=== PATIENT | male | born 1965 | race Caucasian/White ===

== ENCOUNTER 2020-05-25 14:30 | Emergency (ER) | payer MEDICAID, SELFPAY ==
[2020-05-25 14:52] VITALS: BP 112/75; PULSE 98; RESP 12; TEMP 38.1; O2SAT 95; BMI 25.5
--- NOTE | 2020-05-25 15:11 | XRR_ITS ---
PROCEDURE INFORMATION: Exam: XR Left Femur Exam date and time: 05/25/2020 4:21 PM Age: 55 years old Clinical indication: Injury or trauma; Fall; Initial encounter; Blunt trauma; Thigh or upper leg; Left; Additional info: Injury; PT was told leg was fractured TECHNIQUE: Imaging protocol: XR Left femur. Views: 2 views. COMPARISON: No relevant prior studies available. FINDINGS: Bones/joints: Bones appear somewhat demineralized. Acute mildly comminuted and mildly impacted fracture distal femoral metaphysis. Normal alignment about the fracture site. Soft tissues: Unremarkable. XR/XR femur LT min 2V* [id number] IMPRESSION: Bones appear somewhat demineralized. Acute mildly comminuted and mildly impacted fracture distal femoral metaphysis. Normal alignment about the fracture site.
[2020-05-25 15:52] VITALS: BP 115/75; PULSE 105; RESP 18; O2SAT 97
--- NOTE | 2020-05-25 15:53 | PC.NURSE ---
Patient sitting up in wheelchair.
[2020-05-25 15:57] VITALS: PULSE 105
[2020-05-25 16:27] VITALS: BP 126/77; PULSE 101; RESP 16; O2SAT 98
--- NOTE | 2020-05-25 16:32 | ED_ITS ---
HPI - Extremity Problem General: Chief complaint: Extremity Injury, Lower Stated complaint: right leg injury Time Seen by Provider: 05/25/20 15:43 History of Present Illness: HPI Narrative: She reports is a T10 paraplegic. Several days ago he and his grandson were playing together in his electric wheelchair and the patient accidentally fell out of the chair. Patient was contacted today after x-rays and total bili is a distal femur fracture and told come to the emergency department. Patient has absolutely no feeling of the lower extremities. MD Complaint: extremity swelling Onset (ago): day(s) Location: left, lower extremity and knee Review of Systems General: Reports: 10 or more systems reviewed and unremarkable except in HPI and below Physical Exam Const: COMMON NORMALS: no acute distress, healthy appearing and well nourished GENERAL APPEARANCE: cooperative and well developed HENMT: COMMON NORMALS: normocephalic and atraumatic HEAD & SCALP: normal to inspection, normocephalic and atraumatic Eye: GENERAL EYE: appearance normal, both eyes and all related structures Neck/C-Spine: COMMON NORMALS: full ROM, no lymphadenopathy and no meningeal signs GENERAL: Yes normal visual inspection CERVICAL SPINE: Yes cervical ROM normal and Yes normal cervical lordosis Chest: COMMONS NORMALS: normal inspection of the chest and normal palpation of entire chest wall Resp: COMMON NORMALS: normal respiratory effort, clear to auscultation bilaterally and percussion normal AUSCULTATION: clear to auscultation bilaterally PERCUSSION: percussion normal Cardio: COMMON NORMALS: regular rate, regular rhythm, S1 normal heart sound present and S2 normal heart sound present JUGULAR VENOUS DISTENTION: no JVD PALPATION: normal PMI RATE: regular rate RHYTHM: regular rhythm HEART SOUNDS: S1 normal heart sound present and S2 normal heart sound present GI: COMMON NORMALS: Soft to palpation and No hepatosplenomegaly present INSPECTION: Yes normal to inspection PALPATION: Yes Soft to palpation and Yes No hepatosplenomegaly present PERCUSSION: normal to percussion : COMMON NORMALS: Yes no CVA tenderness BLADDER/KIDNEY EXAM: Yes no CVA tenderness Back/Pelvis: COMMON NORMALS: no CVA tenderness, thoracic and lumbar spine normal to inspection and thoraco-lumbar ROM normal Extremity: NARRATIVE EXTREMITY EXAM: Very mild swelling to the left lower extremity. There is no bruising or discoloration. Neuro: MENINGEAL SIGNS: Yes no meningeal signs Skin: COMMON NORMALS: no rashes or lesions noted, no wounds and turgor normal GENERAL SKIN EXAM: no rashes or lesions noted, elasticity normal and turgor normal LESIONS: no lesions RASHES: no rashes TRAUMA: no lacerations or abrasions HAIR: normal NAILS: normal Course Vital Signs: Vital signs: Vital Signs Temperature 100.5 F H 05/25/20 14:52 Pulse Rate 101 H 05/25/20 16:27 Respiratory Rate 16 05/25/20 16:27 Blood Pressure 126/77 05/25/20 16:27 Pulse Oximetry 98 05/25/20 16:27 MDM - Extremity (Nontraumatic) Imaging Data^: Xray Ortho: My impression: Comminuted but minimally displaced and very well aligned distal femur fracture Discharge Plan Discharge Patient Disposition: Home, Self-Care Clinical Impression: Fracture of femur Qualifiers: Encounter type: initial encounter Femur location: distal, unspecified portion Fracture type: closed Fracture morphology: unspecified fracture morphology Laterality: left Qualified Code(s): S72.402A - Unspecified fracture of lower end of left femur, initial encounter for closed fracture Condition: Stable Referrals: Brayan Haro [Primary Care Provider] - Coding Level of Care Code ED Home Office Representative for g Fwd Exam Comprehensive
[2020-05-25 17:09] VITALS: BP 129/79; PULSE 103; RESP 14; O2SAT 96
[2020-05-25 17:43] VITALS: BP 124/74; PULSE 102; RESP 14; O2SAT 96
== END 2020-05-25 17:44 | disposition home or self-care (01) ==
PROVIDERS: Emergency Provider Family Medicine; PCP Family Medicine
DX: S72.402A Unspecified fracture of lower end of left femur, initial encounter for closed fracture (principal); V00.811A Fall from moving wheelchair (powered), initial encounter
CPT/HCPCS: 12345; 29515; 73552; 99282; 99283

== ENCOUNTER 2020-08-01 13:33 | Outpatient (CLI) | payer MEDICAID, SELFPAY ==
--- NOTE | 2020-08-01 13:30 | XRR_ITS ---
PROCEDURE INFORMATION: Exam: XR Abdomen, 1 View Exam date and time: 08/01/2020 2:00 PM Age: 55 years old Clinical indication: Condition or disease; Kidney or ureter condition; Calculus (stone) in kidney; Additional info: Kidney stone TECHNIQUE: Imaging protocol: XR of the abdomen. Views: Frontal supine view of the abdomen. 1 View. COMPARISON: CR XR KUB [id number] 07/27/2019 2:08 PM FINDINGS: Gastrointestinal and tracts: Both kidneys obscured by overlying stool and bowel gas. Suspect bilateral staghorn calculi measuring approximately 3.5 cm on the right and 3.8 cm on the left. Vasculature: Bilateral pelvic floor region phleboliths. Bones/joints: Prior lower lumbar spine bony fusion versus degenerative bony overgrowth/osteophytes. XR/XR KUB [id number] IMPRESSION: Suspect bilateral staghorn calculi.
== END 2020-08-01 13:34 | disposition home or self-care (01) ==
LOC: RAD 13:35
PROVIDERS: PCP Family Medicine; Visit Provider Urology
DX: N20.0 Calculus of kidney (principal)
CPT/HCPCS: 74018

== ENCOUNTER 2020-08-09 11:55 | Outpatient (CLI) | payer MEDICAID, SELFPAY ==
--- NOTE | 2020-08-09 14:00 | CT_ITS ---
WS: [id number] CT ABDOMEN AND PELVIS NONCONTRAST HISTORY: NEPHROLITHIASIS TECHNIQUE: Imaging performed through the abdomen and pelvis. Coronal and sagittal reformats are submi tted. All CT scans at [facility] use at least one of these dose optimization techniques: automated exposure control; mA and/or kV adjustment per patient size (includes targeted exams where d ose is matched to clinical indication); or iterative reconstruction. DLP: 1326.31 mGy.cm COMPARISON: 05/18/2018 and 08/01/2020 Lower thorax: Chronic emphysematous changes with linear areas of scarring at the lung bases. Small hi atal hernia. Liver: Normal size liver. No mass or bile duct dilatation. Gallbladder: Prior cholecystectomy. Pancreas: Atrophied pancreas. No mass. Spleen: Status post splenectomy. Adrenal glands: Normal. No mass. Right kidney: Normal size kidney. Large central renal pelvis staghorn calculus extends towards the ca lyces. Calculus measures 2.0 x 2.8 x 2.3 cm in length. No hydronephrosis or obstruction at this time. Normal caliber RIGHT ureter. Left kidney: Normal size kidney. There is a central staghorn calculus measuring 2.0 x 1.5 x 1.7 cm. T here is slight dilatation of the LEFT renal pelvis but no evidence for an infection or inflammation. The LEFT renal pelvis is mildly obstructed. Normal size ureter. Aorta: Mild atherosclerosis abdominal aorta with no aneurysm. No free fluid, intraperitoneal air or significant lymphadenopathy. There are small retroperitoneal ly mph nodes. Shotty lymph nodes. Similar in appearance to the prior study may be related to the prior o steomyelitis. GI tract: Extensive fecal retention and constipation. No acute inflammatory changes or obstruction. Abdominal wall: Negative. No hernia. Pelvis: Very mild thickening of the urinary bladder wall. Similar to the prior study. No free fluid o r adenopathy. Osseous structures: Significant destructive process involving the L4-5 vertebral body with displaceme nt. Increased soft tissue surrounding the vertebral body. This is consistent with a known history of prior osteomyelitis. For further details refer to the MRI lumbar spine from 11/05/2019. No apparent i nterval change. CT/CT kidney stone [id number] IMPRESSION: 1. Bilateral staghorn calculi. 2. RIGHT renal staghorn calculus measures 2.0 x 2.8 x 2.3 cm with no obstructi on. 3. LEFT renal staghorn calculus measures 2.0 x 1.5 x 1.7 cm with mild dilatati on of the renal pelvis. 4. Prior splenectomy and cholecystectomy. 5. Significant destructive process at the L4-5 level from prior osteomyelitis. Similar in appearance to the prior MRI of 11/05/2019.
== END 2020-08-09 11:56 | disposition home or self-care (01) ==
LOC: CT 11:57
PROVIDERS: PCP Family Medicine; Visit Provider Nurse Practitioner Family
DX: N20.0 Calculus of kidney (principal)
CPT/HCPCS: 74176

== ENCOUNTER 2020-12-27 09:39 | Outpatient (CLI) | payer MEDICAID, SELFPAY ==
--- NOTE | 2020-12-27 09:30 | XR_ITS ---
WS: [id number] KUB, AP view, KUB, 08/01/2020. 12/27/2020 Clinical Data: NEPHROLITHIASIS Comparison: KUB, 08/01/2020. Findings: Colon gas obscures detail over both kidneys. The staghorn calculi noted on the prior examination may be obscured by the colon gas. The patient has had a bony fusion of the L4 and L5 levels unchanged. There is a posterior fusion of t he lower thoracic vertebral bodies unchanged. There are clips in the right upper quadrant from a chol ecystectomy. There are phleboliths in the true pelvis. XR/XR KUB [id number] Impression: Bowel gas obscures detail over both kidneys and the bilateral staghorn calculi may either be absent or obscured.
== END 2020-12-27 09:40 | disposition home or self-care (01) ==
LOC: RAD 09:43
PROVIDERS: PCP Family Medicine; Visit Provider Urology
DX: N20.0 Calculus of kidney (principal)
CPT/HCPCS: 74018

== ENCOUNTER 2021-02-09 14:08 | Emergency (ER) | payer MEDICAID, SELFPAY ==
[2021-02-09 15:21] VITALS: BP 113/70; PULSE 95; RESP 18; TEMP 37.1; O2SAT 98; BMI 28.7
--- NOTE | 2021-02-09 17:10 | USR_ITS ---
PROCEDURE INFORMATION: Exam: US Scrotum and Artery or Vein of the Abdominal and/or Reproductive Organs, Limited Scrotum Exam date and time: 02/09/2021 5:54 PM Age: 55 years old Clinical indication: Edema and inflammation; Scrotum; Additional info: Swelling, redness TECHNIQUE: Imaging protocol: Real-time ultrasound of the scrotum. Real-time duplex ultrasound scan of the arterial or venous flow with gramajo scale, color Doppler flow and spectral waveform analysis with image documentation. Limited Duplex exam focused of the scrotum. Duplex images required to evaluate for torsion and other vascular conditions. COMPARISON: US Testicular [id number] 11/03/2019 2:30 PM FINDINGS: Right testicle: Normal. No mass. No torsion. Normal Duplex waveforms and color doppler. Left testicle: Normal. No mass. No torsion. Normal Duplex waveforms and color doppler. Epididymides: Right epididymis is abnormally thickened. Heterogeneous echotexture. Increased vascularity on color Doppler analysis. Left epididymis has unremarkable size and sonographic features. Blood flow is present, but grossly unremarkable. Scrotum: Small right-sided varicocele. No significant left-sided varicocele. No significant scrotal fluid. US/US scrotum [id number] IMPRESSION: 1. Enlarged, thickened, hypervascular right epididymis suspicious for acute epididymitis. 2. Negative for testicular torsion.
[2021-02-09 17:32] LABS: Basophils # 0.1 10^3/uL (0.0-0.1); Basophils % 0.7 %; Eosinophils # 0.2 10^3/uL (0.0-0.8); Hematocrit 38.6 % (42.0-52.0); Hemoglobin 12.5 g/dL (11.7-16.6); Lymphocytes # 2.7 10^3/uL (0.8-4.8); Mean Corpuscular HGB Conc 32.4 g/dL (30.0-36.0); Mean Corpuscular Hemoglobin 28.2 pg (28.0-34.0); Mean Corpuscular Volume 87.1 fL (80-94); Mean Platelet Volume 9.7 fL (7.4-10.4); Monocytes # 1.3 10^3/uL (0.2-0.9); Monocytes % 7.6 %; Neutrophils # 12.33 10^3/uL (1.8-7.7); Neutrophils % 74.2 %; Nucleated Red Blood Cells % 0 %; Platelet Count 354 10^3/cmm (130-400); Red Blood Count 4.43 10^6/uL (4.1-5.3); Red Cell Distribution Width 15.7 % (12.1-15.1); White Blood Count 16.6 10^3/uL (4.0-10.0)
[2021-02-09 17:57] LABS: Alanine Aminotransferase 15 U/L (0-41); Albumin Level 3.9 g/dL (3.5-5.2); Alkaline Phosphatase 102 IU/L (40-130); Anion Gap 12.5 (5-19); Aspartate Amino Transferase 15 U/L (0-40); Blood Urea Nitrogen 11 mg/dL (6-20); Calcium 8.9 mg/dL (8.5-10.5); Carbon Dioxide 29 mmol/L (22-29); Chloride 97 mmol/L (98-107); Globulin 3.5 g/dL (1.3-4.6); Glomerular Filtration Rate 140.4 mL/min (90-130); Glucose 102 mg/dL (65-115); Osmolality Calculated 280 mOsm/kg (285-295); Potassium 3.5 mmol/L (3.5-5.1); Sodium 135 mmol/L (136-145); Total Bilirubin 0.6 mg/dL (0.15-1.2); Total Protein 7.4 g/dL (6.6-8.7)
[2021-02-09 18:06] LABS: Creatinine Clr Calc Pharmacy 159.4329
--- NOTE | 2021-02-09 18:16 | ED_ITS ---
HPI - Male Genitourinary General: Chief complaint: Urogenital-Male Stated complaint: GROIN SWOLLEN Source: patient and family () Mode of arrival: wheelchair Limitations: no limitations History of Present Illness: HPI Narrative: 55-year-old male who is a paraplegic and presents to the emergency department with scrotal swelling and perineal swelling. Symptoms started about a week ago. He says he has had some similar happen in the past and he was given some antibiotics to treat it. He denies any fever, denies any penile discharge. He is here for evaluation of this MD Complaint: testicle pain and testicle swelling Onset (ago): week(s) (1) Duration: constant Location: right testicle and left testicle Severity: moderate Quality: aching Relieving factors: none Exacerbating factors: none Associated symptoms: Deny discharge, dysuria, fevers/chills, hematuria, nausea, rash, swelling, urinary incontinence, urinary retention, mass or vomiting Review of Systems General: Reports: 10 or more systems reviewed and unremarkable except in HPI and below Const: Denies: fever(s), chills or body aches Eyes: Denies: change in vision or blurry vision ENMT: Denies: throat pain, enlarged tonsils, odynophagia, hoarseness, mouth pain or swelling of lips/tongue Card: Reports: chest pain; Denies: palpitations, irregular heart rhythm, edema or swelling of feet/ankles Resp: Denies: dyspnea, productive cough or non-productive cough GI: Denies: nausea or vomiting : Reports: scrotal swelling; Denies: dysuria, urinary frequency, urinary urgency, urinary hesitancy, urinary incontinence, hematuria or penile discharge Musc: Denies: neck pain, back pain or extremity swelling Skin/Breast: Denies: rash, pruritus or erythema Neuro: Reports: weakness in extremities (paraplegic); Denies: headache(s) or numbness in extremities Endo: Denies: polyuria, polydipsia or tired all the time PFS ED PFSH: Medical History (Reviewed 02/10/21 @ 00:09 by Christen Olivares MD, [facility] [place]) Allergic rhinitis Discitis of lumbar region DVT (deep venous thrombosis) Fusion of spine, thoracolumbar region ELIZABETH (generalized anxiety disorder) Nephrolithiasis Neurogenic bladder Osteoporosis Post-traumatic paraplegia Pulmonary embolism Rectal abscess s/p I&D 10/2019 Recurrent UTI Thrombocytosis after splenectomy Traumatic brain injury Vertebral osteomyelitis Surgical History (Reviewed 02/10/21 @ 00:09 by Christen Olivares MD, [facility] [place]) History of appendectomy History of cholecystectomy Post-splenectomy 06/2016 S/P lumbar spinal arthrodesis 08/2018 Family History (Reviewed 02/10/21 @ 00:09 by Christen Olivares MD, [facility] [place]) Father CAD (coronary artery disease) Social History (Reviewed 02/10/21 @ 00:09 by Christen Olivares MD, [facility] [place]) Smoking and tobacco status: former smoker Alcohol intake: never Marital status: Single Current occupational status: disabled History of recent travel: No Physical Exam Const: COMMON NORMALS: no acute distress, average body habitus, patient oriented x3, no limitations, healthy appearing, alert and well nourished HENMT: COMMON NORMALS: normocephalic, atraumatic and moist oral mucous membranes HEAD & SCALP: normocephalic and atraumatic Neck/C-Spine: COMMON NORMALS: no JVD Resp: COMMON NORMALS: normal respiratory effort, No retractions, No use of accessory muscles, clear to auscultation bilaterally and percussion normal AUSCULTATION: clear to auscultation bilaterally PERCUSSION: percussion normal Cardio: COMMON NORMALS: no JVD, regular rate, regular rhythm, S1 normal heart sound present, S2 normal heart sound present, No gallops present (Cardio), No clicks present (Cardio), No murmurs present (Cardio), No rub (Cardio) and Peripheral pulses 2+ throughout RATE: regular rate RHYTHM: regular rhythm HEART SOUNDS: S1 normal heart sound present and S2 normal heart sound present PERIPHERAL PULSES: Peripheral pulses 2+ throughout GI: COMMON NORMALS: Normal to inspection, nondistended, normoactive bowel sounds present, Soft to palpation, non-tender, No hepatosplenomegaly present, no masses and no bruits PALPATION: Yes Soft to palpation and Yes No hepatosplenomegaly present : COMMON NORMALS: Yes no CVA tenderness BLADDER/KIDNEY EXAM: Yes no CVA tenderness PENIS: normal penis and circumcised SCROTUM: Yes testes descended bilaterally, No Scrotal tenderness present (he has no sensation from his lower abdomen distally.), Yes erythematous and Yes scrotal swelling TESTES: Yes epididymal induration Back/Pelvis: COMMON NORMALS: no CVA tenderness Extremity: COMMON NORMALS: normal to inspection, full ROM, capillary refill normal, no calf tenderness and no pedal edema Neuro: COMMON NORMALS: patient oriented x3 SENSORIUM/ORIENTATION: Yes alert Course Reevaluation(s): Reevaluation #1: Discussed his lab and ultrasound findings with him. Ultrasound findings consistent with acute epididymitis. We will discharge him home with a prescription for oral levofloxacin. He voiced understanding and is in agreement with the plan Time: 18:16 Vital Signs: Vital signs: Vital Signs Temperature 98.8 F 02/09/21 15:21 Pulse Rate 95 02/09/21 15:21 Respiratory Rate 18 02/09/21 15:21 Blood Pressure 113/70 02/09/21 15:21 Pulse Oximetry 98 02/09/21 15:21 MDM - Male MDM Narrative: Medical decision making narrative: 55-year-old male with clinical features consistent with acute epididymitis. Appears uncomplicated at this time and he is discharged home with a prescription for levofloxacin. He is to follow-up with his primary care provider. Medical Records: Attestation: I reviewed the patient's medical records. Lab Data: Attestation: I reviewed the patient's lab results. Labs: Lab Results 02/09/21 02/09/21 Range/Units 17:25 17:25 WBC 16.6 H (4.0-10.0) 10^3/ uL RBC 4.43 (4.1-5.3) 10^6/u L Hgb 12.5 (11.7-16.6) g/dL Hct 38.6 L (42.0-52.0) % MCV 87.1 (80-94) fL MCH 28.2 (28.0-34.0) pg MCHC 32.4 (30.0-36.0) g/dL RDW 15.7 H (12.1-15.1) % Plt Count 354 (130-400) 10^3/c mm MPV 9.7 (7.4-10.4) fL Neut % (Auto) 74.2 % Lymph % (Auto) 16.0 % Kimble % (Auto) 7.6 % Eos % (Auto) 1.0 % Baso % (Auto) 0.7 % Neut # (Auto) 12.33 H (1.8-7.7) 10^3/u L Lymph # (Auto) 2.7 (0.8-4.8) 10^3/u L Kimble # (Auto) 1.3 H (0.2-0.9) 10^3/u L Eos # (Auto) 0.2 (0.0-0.8) 10^3/u L Baso # (Auto) 0.1 (0.0-0.1) 10^3/u L Nucleated RBC % (a uto) 0 % Nucleated RBCs # 0.0 /100WBC Sodium 135 L (136-145) mmol/L Potassium 3.5 (3.5-5.1) mmol/L Chloride 97 L (98-107) mmol/L Carbon Dioxide 29 (22-29) mmol/L Anion Gap 12.5 (5-19) BUN 11 (6-20) mg/dL Creatinine 0.6 L (0.7-1.2) mg/dL GFR Calculation 140.4 H (90-130) mL/min Glucose 102 (65-115) mg/dL Calculated Osmolal ity 280 L (285-295) mOsm/k g Calcium 8.9 (8.5-10.5) mg/dL Total Bilirubin 0.6 (0.15-1.2) mg/dL AST 15 (0-40) U/L ALT 15 (0-41) U/L Alkaline Phosphata se 102 (40-130) IU/L Total Protein 7.4 (6.6-8.7) g/dL Albumin 3.9 (3.5-5.2) g/dL Globulin 3.5 (1.3-4.6) g/dL Imaging Data: US: Attestation: I personally reviewed and interpreted this imaging study as follows: Radiologist's impression: [address] [address] Ultrasound Report Signed Patient: Blade Salgado #: [id number] : 1965Acct#:[id number] Age/Sex: 55 / MADM Date: 02/09/21 Loc: ERRoom/Bed: Attending Dr: Ordering Provider/Ordering MD: Christen Olivares MD, [facility] [place] Date of Service: 02/09/21 Procedure(s): US scrotum [id number] Accession Number(s): [id number] Report Number: [id number] PROCEDURE INFORMATION: Exam: US Scrotum and Artery or Vein of the Abdominal and/or Reproductive Organs, Limited Scrotum Exam date and time: 02/09/2021 5:54 PM Age: 55 years old Clinical indication: Edema and inflammation; Scrotum; Additional info: Swelling, redness TECHNIQUE: Imaging protocol: Real-time ultrasound of the scrotum. Real-time duplex ultrasound scan of the arterial or venous flow with gramajo scale, color Doppler flow and spectral waveform analysis with image documentation. Limited Duplex exam focused of the scrotum. Duplex images required to evaluate for torsion and other vascular conditions. COMPARISON: US Testicular [id number] 11/03/2019 2:30 PM FINDINGS: Right testicle: Normal. No mass. No torsion. Normal Duplex waveforms and color doppler. Left testicle: Normal. No mass. No torsion. Normal Duplex waveforms and color doppler. Epididymides: Right epididymis is abnormally thickened. Heterogeneous echotexture. Increased vascularity on color Doppler analysis. Left epididymis has unremarkable size and sonographic features. Blood flow is present, but grossly unremarkable. Scrotum: Small right-sided varicocele. No significant left-sided varicocele. No significant scrotal fluid. US/US scrotum [id number] IMPRESSION: 1. Enlarged, thickened, hypervascular right epididymis suspicious for acute epididymitis. 2. Negative for testicular torsion. Dictated By:Joshua Guevara Signed By:Carroll Guevara Date/Time:02/09/211803 DD/ 02 Discharge Plan Discharge Patient Disposition: Home Clinical Impression: Epididymitis Condition: Stable Prescriptions: New levofloxacin 500 mg tablet 500 mg PO DAILY 10 Days RF: 0 Continued ascorbic acid (vitamin C) [Vitamin C] 1,000 mg Tablet 1,000 mg PO BID@ RF: 0 polyethylene glycol 3350 [Miralax] 17 gram Powder In Packet 17 g PO DAILY@1900 RF: 0 tamsulosin 0.4 mg Capsule 0.4 mg PO DAILY@07 RF: 0 baclofen 10 mg Tablet 5 mg PO QID PRN (Reason: Pain) RF: 0 gabapentin 300 mg Capsule 600 mg PO QID RF: 0 ergocalciferol (vitamin D2) 1,250 mcg (50,000 unit) Capsule 1,250 mcg PO Q7D RF: 0 duloxetine 30 mg Capsule,Delayed Release(Dr/Ec) 30 mg PO BID@ RF: 0 oxycodone 10 mg Tablet 10 mg PO Q4H PRN (Reason: Pain) RF: 0 Forteo 20 mcg/dose - 600 mcg/2.4 mL Pen Injector 20 mcg SUBCUT DAILY@2199 RF: 0 Narcan 4 mg/actuation [place],Non-Aerosol 4 mg INTRANASAL Q2M PRN (Reason: OVERDOSE) RF: 0 sumatriptan succinate 50 mg Tablet 50 mg PO Q2H PRN (Reason: Migraine Headache) RF: 0 Pepcid 20 mg Tablet 10 mg PO BID@ RF: 0 buspirone 10 mg Tablet 10 mg PO Q6H PRN (Reason: Anxiety) RF: 0 Colace 100 mg Capsule 100 mg PO BEDTIME@2199 RF: 0 simethicone 80 mg Tablet,Chewable 80 mg PO DAILY PRN (Reason: GAS) RF: 0 Probiotic 3 billion cell Capsule 3,000 mmu cells PO BID@ RF: 0 doxycycline hyclate 100 mg capsule 100 mg PO BID@ RF: 0 methenamine hippurate 1 gram tablet 1 g PO BID@ RF: 0 potassium citrate 10 mEq (1,080 mg) tablet extended release 20 meq PO BID@ RF: 0 Discharge Orders: Discharge ED (Routine); Ordered 02/09/21 Ordered By: Christen Olivares Referrals: Brayan Haro [Primary Care Provider] - 1-3 days Discharge Diet: Usual diet Discharge Activity: Increase activity as tolerated Patient Instructions: Epididymitis (ED) Activity Restrictions/Additional Instructions: Return for any new or worsening symptoms. Follow-up with your primary care provider within 3 days. Take the antibiotic as prescribed. Coding Level of Care Code ED [place] Buyer for Erum Culp
== END 2021-02-09 18:53 | disposition home or self-care (01) ==
PROVIDERS: Emergency Provider Family Medicine; PCP Family Medicine
DX: N45.1 Epididymitis (principal); Z87.891 Personal history of nicotine dependence
CPT/HCPCS: 76870; 80053; 85025; 99282

== ENCOUNTER 2021-02-21 10:32 | Outpatient (CLI) | payer MEDICAID, SELFPAY | END 2021-02-21 10:33 | disposition home or self-care (01) | LOC: WOUND 10:33 | PROVIDERS: PCP Family Medicine; Visit Provider Thoracic Surgery (Cardiothoracic Vascular Surgery) | DX: L98.492 Non-pressure chronic ulcer of skin of other sites with fat layer exposed (principal) | CPT/HCPCS: 11042; G0463 ==

== ENCOUNTER 2021-03-07 11:32 | Outpatient (CLI) | payer MEDICAID, SELFPAY | END 2021-03-07 11:33 | disposition home or self-care (01) | LOC: WOUND 11:32 | PROVIDERS: PCP Family Medicine; Visit Provider Nurse Practitioner Family | DX: L98.492 Non-pressure chronic ulcer of skin of other sites with fat layer exposed (principal) | CPT/HCPCS: 11042 ==

== ENCOUNTER 2021-03-28 10:43 | Outpatient (CLI) | payer MEDICAID, SELFPAY | END 2021-03-28 10:44 | disposition home or self-care (01) | LOC: WOUND 10:44 | PROVIDERS: PCP Family Medicine; Visit Provider Thoracic Surgery (Cardiothoracic Vascular Surgery) | DX: L98.492 Non-pressure chronic ulcer of skin of other sites with fat layer exposed (principal) | CPT/HCPCS: 11042 ==

== ENCOUNTER 2021-04-18 10:03 | Outpatient (CLI) | payer MEDICAID, SELFPAY | END 2021-04-18 10:04 | disposition home or self-care (01) | LOC: WOUND 10:03 | PROVIDERS: PCP Family Medicine; Visit Provider Thoracic Surgery (Cardiothoracic Vascular Surgery) | DX: L02.818 Cutaneous abscess of other sites (principal) | CPT/HCPCS: 99212 ==

== ENCOUNTER → 2021-04-19 11:11 | Outpatient (BNVA) | payer MEDICAID, SELFPAY | PROVIDERS: PCP Family Medicine; Visit Provider Thoracic Surgery (Cardiothoracic Vascular Surgery) | DX: Z01.818 Encounter for other preprocedural examination (principal) | CPT/HCPCS: 87635 ==

== ENCOUNTER 2021-04-25 06:09 | Day surgery (SDC) | payer MEDICAID, SELFPAY ==
[2021-04-24 13:04] VITALS: BMI 26.5
[2021-04-25 06:25] VITALS: BP 138/78; PULSE 74; RESP 16; TEMP 36.9; O2SAT 95
--- NOTE | 2021-04-25 06:35 | W.PM.OPSUD ---
Surgery/Procedure H&P Update DATE OF PROCEDURE: April 25, 2021 DATE H&P PERFORMED: 04/18/21 H&P UPDATE INFORMATION: I have reviewed H&P completed within last 30 days, I have examined patient prior to procedure and No changes to prior documentation PREOP DIAGNOSIS: Scrotal abscess PRIMARY INDICATION FOR PROCEDURE: Open remaining abscess tract to allow for appropriate packing PLANNED PROCEDURE: Operation Date: 04/25/21 07:00 Proposed Procedures p Incision And Drainage buttocks(Not Applicable) - Arya Subramanian MD
[2021-04-25 06:48] LABS: Basophils # 0.1 10^3/uL (0.0-0.1); Basophils % 1.6 %; Eosinophils # 0.6 10^3/uL (0.0-0.8); Eosinophils % 7.5 %; Hematocrit 41.1 % (42.0-52.0); Hemoglobin 13.2 g/dL (11.7-16.6); Lymphocytes # 3.2 10^3/uL (0.8-4.8); Lymphocytes % 42.6 %; Mean Corpuscular HGB Conc 32.1 g/dL (30.0-36.0); Mean Corpuscular Hemoglobin 28.4 pg (28.0-34.0); Mean Corpuscular Volume 88.4 fL (80-94); Mean Platelet Volume 10.3 fL (7.4-10.4); Monocytes # 0.7 10^3/uL (0.2-0.9); Monocytes % 9.1 %; Neutrophils # 2.93 10^3/uL (1.8-7.7); Neutrophils % 39.1 %; Nucleated Red Blood Cells % 0 %; Platelet Count 401 10^3/cmm (130-400); Red Blood Count 4.65 10^6/uL (4.1-5.3); Red Cell Distribution Width 16.2 % (12.1-15.1); White Blood Count 7.5 10^3/uL (4.0-10.0)
[2021-04-25] MEDS: vancomycin 1,000 MG in sodium chloride 0.9% 250 ML 250 MG IV (06:50)
[2021-04-25] MEDS: sodium chloride 0.9% 1,000 ML 30 ML IV (06:50)
[2021-04-25 07:13] LABS: Anion Gap 14.1 (5-19); Blood Urea Nitrogen 13 mg/dL (6-20); Calcium 9.6 mg/dL (8.5-10.5); Carbon Dioxide 28 mmol/L (22-29); Chloride 100 mmol/L (98-107); Glomerular Filtration Rate 224.2 mL/min (90-130); Glucose 100 mg/dL (65-115); Osmolality Calculated 286 mOsm/kg (285-295); Potassium 4.1 mmol/L (3.5-5.1); Sodium 138 mmol/L (136-145)
--- NOTE | 2021-04-25 07:19 | P.ANESASSM_ITS ---
Pre-Anesthetic Assessment Pre-Anesthetic Assessment: Height/Weight: Height 1.78 m Weight 83.915 kg Temp Pulse Resp BP Pulse Ox 98.5 F 74 16 138/78 95 04/25/21 06:25 04/25/21 06:25 04/25/21 06:25 04/25/21 06:25 04/25/21 06:25 Preop Diagnosis: Scrotal abscess Proposed Procedure: Operation Date: 04/25/21 07:00 Proposed Procedures p Incision And Drainage buttocks(Not Applicable) - Arya Subramanian MD Was Beta Bertha taken within 24 hours: N/A Was Clonidine taken within 24 hours: N/A Last intake: Intake Last Liquid Date 04/25/21 Last Liquid Time 00:00 Last Solid Date 04/24/21 Last Solid Time 21:00 Social: Social History: Tobacco and No alcohol Exam: Pre-Anes Outpt Exam: alert, oriented x 3 and regular rate & rhythm Airway: Submandibular: WNL Cervical ROM: WNL MP: 2 Dentition: False Additional comments: Dickson Pulmonary: Pulmonary: COPD Musc/skel: Comments: Chronic pain/opioid Neuropsych: Neuropsych: Anxiety Comments: Paraplegia Anesthetic Plan: ASA status: 3 Anesthesia: General Risk of > 500 ml blood loss (7ml/kg in children): No Meds/Allergies Current Medications: Current Medications Generic Name Dose Route Start Last Admin Trade Name Freq PRN Reason Stop Dose Admin Sodium Chloride 1,000 mls @ 30 ml s/hr 04/25/21 06:15 04/25/21 06:50 Sodium Chloride 0.9% IV 04/26/21 06:14 30 mls/hr .Q24H PATRICIA Administration PFSH Anesthesia PFSH: Medical History Allergic rhinitis Discitis of lumbar region DVT (deep venous thrombosis) Fusion of spine, thoracolumbar region ELIZABETH (generalized anxiety disorder) Nephrolithiasis Neurogenic bladder Osteoporosis Post-traumatic paraplegia Pulmonary embolism Rectal abscess s/p I&D 10/2019 Recurrent UTI Thrombocytosis after splenectomy Traumatic brain injury Vertebral osteomyelitis Surgical History History of appendectomy History of cholecystectomy Post-splenectomy 06/2016 S/P lumbar spinal arthrodesis 08/2018 Family History Father CAD (coronary artery disease) Social History Smoking and tobacco status: former smoker Alcohol intake: never Marital status: Single Current occupational status: disabled History of recent travel: No Data Anesthesia CBC & Chem 7: 04/25/21 06:40 04/25/21 06:40 Other Labs: Laboratory Results - last 48 hr 04/25/21 04/25/21 06:40 06:40 WBC 7.5 RBC 4.65 Hgb 13.2 Hct 41.1 L MCV 88.4 MCH 28.4 MCHC 32.1 RDW 16.2 H Plt Count 401 H MPV 10.3 Neut % (Auto) 39.1 Lymph % (Auto) 42.6 [place] % (Auto) 9.1 Eos % (Auto) 7.5 Baso % (Auto) 1.6 Neut # (Auto) 2.93 Lymph # (Auto) 3.2 [place] # (Auto) 0.7 Eos # (Auto) 0.6 Baso # (Auto) 0.1 Nucleated RBC % (auto) 0 Nucleated RBCs # 0.0 Sodium 138 Potassium 4.1 Chloride 100 Carbon Dioxide 28 Anion Gap 14.1 BUN 13 Glucose 100 Calculated Osmolality 286 Calcium 9.6 Cardiac Studies: No Data to Display
--- NOTE | 2021-04-25 07:37 | P.OP_ITS ---
Operative Report Date of procedure: April 25, 2021 Pre-op Diagnosis: Draining Scrotal abscess tract Post-op diagnosis: same Procedure Done: I&D of scrotal abscess tract Specimens removed/disposition: None Pathology: none sent Surgeon: Arya Subramanian Anesthesia: MAC Complications: None Findings: Abscess tract opened up widely with debridement of the tract floor Condition: stable Disposition: same day Brief History: Mr. Salgado pleasant 55-year-old paraplegic gentleman who is been followed in wound care services and is status post drainage of a large scrotal abscess. This wound is healed well except for a small draining sinus tract in the midline. This does probe and I recommended that this be opened widely under operative conditions to allow for secondary intentional healing. Details the risk of the procedure were carefully discussed. Proper consents were reviewed and signed. Mr. Salgado is anesthetic from the lower abdomen distally. Procedure: Mr. Salgado taken to the operating room theater and carefully positioned in the left lateral decubitus position and secured. He received very light conscious sedation. No local anesthesia was required. His entire perineal area was sterilely prepped and draped. Utilized a small probe to identify the tract and its extent both posteriorly and anteriorly. This was opened up with a #11 and #15 scalpel blade widely. Bleeding points were cauterized as needed. In the lining of the tract was actively excised with a # 15 scalpel blade and with Metzenbaum scissors. We confirmed hemostasis. Wound was irrigated. Final dimensions of the wound measure 2.5 cm in length by 1 cm in width by 1 cm in depth. Wet-to-dry dressing was then applied. He was then carefully returned to the supine position. He tolerated procedure quite well without any discomfort. He is transferred now back to outpatient surgery department. He will receive daily wet-to-dry dressing changes. He will follow- up in wound care services at his next scheduled appointment.
[2021-04-25 07:38] VITALS: BP 127/82; PULSE 88; RESP 18; TEMP 37.2; O2SAT 93
[2021-04-25 07:40] VITALS: BP 130/78; PULSE 81; RESP 18; O2SAT 95
[2021-04-25 07:45] VITALS: BP 122/69; PULSE 74; RESP 18; O2SAT 93
[2021-04-25 07:50] VITALS: BP 116/80; PULSE 70; RESP 17; TEMP 37.2; O2SAT 93
[2021-04-25 08:02] VITALS: BP 125/81; PULSE 67; RESP 16; TEMP 36.6; O2SAT 94
--- NOTE | 2021-04-25 12:51 | ANE.PACU2 ---
Inpatient post-anesthesia follow up: Airway intact: Yes Vital signs: Temperature 98 F Pulse Rate 67 Respiratory Rate 16 Blood Pressure 125/81 Pulse Oximetry 94 Oxygen Delivery Me thod Room Air Oxygen Flow Rate Fraction of Inspir ed Oxygen Hydration adequate: Yes Nausea and vomiting: No Pain level: 1 Mental status: Baseline
== END 2021-04-25 08:35 | disposition home or self-care (01) ==
PROVIDERS: PCP Family Medicine; Visit Provider Thoracic Surgery (Cardiothoracic Vascular Surgery)
PROC: (CPT 55100; principal; 2021-04-25 07:00)
DX: N49.2 Inflammatory disorders of scrotum (principal); J44.9 Chronic obstructive pulmonary disease, unspecified; Z86.718 Personal history of other venous thrombosis and embolism; M81.0 Age-related osteoporosis without current pathological fracture; Z98.1 Arthrodesis status; Z87.891 Personal history of nicotine dependence
CPT/HCPCS: 55100; 36415; 80048; 85025; 96365; J2250; J3010; J3370; J7030; J7050

== ENCOUNTER 2021-05-01 11:53 | Outpatient (CLI) | payer MEDICAID, SELFPAY ==
--- NOTE | 2021-05-01 12:00 | XRR_ITS ---
PROCEDURE INFORMATION: Exam: XR Abdomen Exam date and time: 05/01/2021 12:01 PM Age: 55 years old Clinical indication: Condition or disease; Kidney or ureter condition; Calculus (stone) in kidney; Prior surgery; Surgery type: Spleen, gallbladder; Additional info: N20.0 - calculus of kidney TECHNIQUE: Imaging protocol: XR of the abdomen. Views: Frontal supine view of the abdomen. 1 View. COMPARISON: CR XR KUB [id number] 12/27/2020 10:02 AM FINDINGS: Gastrointestinal tract: Normal. No bowel dilation. Status post cholecystectomy. Organs: Urinary tract: The kidneys are partially obscured by colon contents. A faint density is present in the medial aspect of the right kidney suspicious for staghorn calculus. Bones/joints: Lumbar spine osteopenia and osteoarthritis is seen. Surgical hardware is seen in the lower dorsal spine. XR/XR KUB [id number] IMPRESSION: 1. No acute GI abnormality. 2. Osteoarthritis lumbar spine 3. Surgical hardware dorsal spine. 4. Possible staghorn calculus right kidney
== END 2021-05-01 11:54 | disposition home or self-care (01) ==
PROVIDERS: PCP Family Medicine; Visit Provider Urology
DX: N20.0 Calculus of kidney (principal); M47.816 Spondylosis without myelopathy or radiculopathy, lumbar region
CPT/HCPCS: 74018

== ENCOUNTER 2021-05-02 10:22 | Outpatient (CLI) | payer MEDICAID, SELFPAY | END 2021-05-02 10:23 | disposition home or self-care (01) | LOC: WOUND 10:23 | PROVIDERS: PCP Family Medicine; Visit Provider Thoracic Surgery (Cardiothoracic Vascular Surgery) | DX: L98.492 Non-pressure chronic ulcer of skin of other sites with fat layer exposed (principal) | CPT/HCPCS: 11042 ==

== ENCOUNTER 2021-05-09 10:29 | Outpatient (CLI) | payer MEDICAID, SELFPAY | END 2021-05-09 10:30 | disposition home or self-care (01) | LOC: WOUND 10:29 | PROVIDERS: PCP Family Medicine; Visit Provider Nurse Practitioner Family | DX: L98.412 Non-pressure chronic ulcer of buttock with fat layer exposed (principal) | CPT/HCPCS: 11042 ==

== ENCOUNTER 2021-05-23 09:24 | Outpatient (CLI) | payer MEDICAID, SELFPAY | END 2021-05-23 09:25 | disposition home or self-care (01) | LOC: WOUND 09:25 | PROVIDERS: PCP Family Medicine; Visit Provider Thoracic Surgery (Cardiothoracic Vascular Surgery) | DX: T81.89XA Other complications of procedures, not elsewhere classified, initial encounter (principal); Y83.8 Other surgical procedures as the cause of abnormal reaction of the patient, or of later complication, without mention of misadventure at the time of the procedure | CPT/HCPCS: 11042 ==

== ENCOUNTER 2021-06-20 09:32 | Outpatient (CLI) | payer MEDICAID, SELFPAY | END 2021-06-20 09:33 | disposition home or self-care (01) | LOC: WOUND 09:32 | PROVIDERS: PCP Family Medicine; Visit Provider Nurse Practitioner Family | DX: T81.89XA Other complications of procedures, not elsewhere classified, initial encounter (principal); Y83.8 Other surgical procedures as the cause of abnormal reaction of the patient, or of later complication, without mention of misadventure at the time of the procedure | CPT/HCPCS: 11042 ==

== ENCOUNTER 2021-06-27 10:15 | Outpatient (CLI) | payer MEDICAID, SELFPAY | END 2021-06-27 10:16 | disposition home or self-care (01) | LOC: WOUND 10:16 | PROVIDERS: PCP Family Medicine; Visit Provider Thoracic Surgery (Cardiothoracic Vascular Surgery) | DX: T81.89XA Other complications of procedures, not elsewhere classified, initial encounter (principal); Y83.8 Other surgical procedures as the cause of abnormal reaction of the patient, or of later complication, without mention of misadventure at the time of the procedure; F17.210 Nicotine dependence, cigarettes, uncomplicated; L02.818 Cutaneous abscess of other sites | CPT/HCPCS: G0463 ==

== ENCOUNTER 2021-07-06 11:03 | Outpatient (CLI) | payer MEDICAID, SELFPAY | END 2021-07-06 11:04 | disposition home or self-care (01) | LOC: WOUND 11:03 | PROVIDERS: PCP Family Medicine; Visit Provider Surgery | DX: T81.89XA Other complications of procedures, not elsewhere classified, initial encounter (principal); Y83.8 Other surgical procedures as the cause of abnormal reaction of the patient, or of later complication, without mention of misadventure at the time of the procedure; L02.818 Cutaneous abscess of other sites; F17.210 Nicotine dependence, cigarettes, uncomplicated | CPT/HCPCS: 11042 ==

== ENCOUNTER → 2021-07-11 16:04 | Outpatient (BNVA) | payer MEDICAID, SELFPAY | PROVIDERS: PCP Family Medicine; Visit Provider Surgery | DX: L02.215 Cutaneous abscess of perineum (principal); Z20.822 Contact with and (suspected) exposure to COVID-19 | CPT/HCPCS: 87635 ==

== ENCOUNTER 2021-07-16 09:53 | Day surgery (SDC) | payer MEDICAID, SELFPAY ==
[2021-07-13 15:07] VITALS: BMI 25.8
[2021-07-16] MEDS: acetaminophen 1,000 MG/100 ML PIGGYBACK 400 MG IV (10:20)
[2021-07-16] MEDS: sodium chloride 0.9% 1,000 ML 30 ML IV (10:20)
--- NOTE | 2021-07-16 11:37 | W.PM.OPSUD ---
Surgery/Procedure H&P Update DATE OF PROCEDURE: July 16, 2021 DATE H&P PERFORMED: 07/11/21 H&P UPDATE INFORMATION: I have reviewed H&P completed within last 30 days, I have examined patient prior to procedure and No changes to prior documentation PREOP DIAGNOSIS: Perineal fistula PRIMARY INDICATION FOR PROCEDURE: The same PLANNED PROCEDURE: Operation Date: 07/16/21 11:45 Proposed Procedures p Wound Exploration [id number](Not Applicable) - Roby Dominique MD s Exam Under Anesthesia(Not Applicable) - Roby Dominique MD
--- NOTE | 2021-07-16 11:55 | ANES.PREANE2 ---
Pre-Anesthetic Assessment Pre-Anesthetic Assessment: Height/Weight: Height 1.78 m Weight 81.647 kg Preop Diagnosis: Perineal fistula Proposed Procedure: Operation Date: 07/16/21 11:45 Proposed Procedures p Wound Exploration 77782(Not Applicable) - Roby Dominique MD s Exam Under Anesthesia(Not Applicable) - Roby Dominique MD Was Beta Bertha taken within 24 hours: N/A Was Clonidine taken within 24 hours: N/A Last intake: Intake Last Liquid Date 07/15/21 Last Liquid Time 21:00 Last Solid Date 07/15/21 Last Solid Time 21:00 Social: Social History: Tobacco and No alcohol Exam: Pre-Anes Outpt Exam: alert, oriented x 3 and regular rate & rhythm Airway: Submandibular: WNL Cervical ROM: WNL MP: 2 Dentition: False Additional comments: beatriz Toussaint/vijaya: Comments: Chronic pain/opioid Neuropsych: Neuropsych: Anxiety and Depression Comments: Paraplegia Anesthetic Plan: ASA status: 3 Anesthesia: General Risk of > 500 ml blood loss (7ml/kg in children): No Meds/Allergies Current Medications: Current Medications Generic Name Dose Route Start Last Admin Trade Name Freq PRN Reason Stop Dose Admin Sodium Chloride 1,000 mls @ 30 ml s/hr 07/16/21 10:30 07/16/21 10:20 Sodium Chloride 0.9% IV 07/17/21 10:29 30 mls/hr .Q24H PATRICIA Administration PFSH Anesthesia PFSH: Medical History Allergic rhinitis Discitis of lumbar region DVT (deep venous thrombosis) Fusion of spine, thoracolumbar region ELIZABETH (generalized anxiety disorder) Nephrolithiasis Neurogenic bladder Osteoporosis Post-traumatic paraplegia Pulmonary embolism Rectal abscess s/p I&D 10/2019 Recurrent UTI Thrombocytosis after splenectomy Traumatic brain injury Vertebral osteomyelitis Surgical History History of appendectomy History of cholecystectomy Post-splenectomy 06/2016 S/P lumbar spinal arthrodesis 08/2018 Family History Father CAD (coronary artery disease) Mother , at age 55 Brain aneurysm Social History Alcohol intake: never Marital status: Single Current occupational status: disabled History of recent travel: No Data Anesthesia Cardiac Studies: No Data to Display
[2021-07-16] MEDS: piperacillin-tazobactam 3.375 GM in sodium chloride 0.9% (plus) 50 ML IV (12:11)
--- NOTE | 2021-07-16 12:55 | P.OP_ITS ---
Operative Report Date of procedure: July 16, 2021 Pre-op Diagnosis: Perineal fistula Post-op diagnosis: same Post-op Findings: Right-sided perineal fistula Procedure Done: 1-Examination under anesthesia 2-Exploration of perineal wound and placement of seton Implants: Blue vessel loop Medical Records Tech: Suzy Song Circulating nurse Rosemary Horvath Anesthesia: MAC (Marifer Michaud) Estimated blood loss (mL): 5 Condition: stable Disposition: same day Brief History: Perineal fistula Procedure: Patient was identified in the holding area, was taken to the OR placed first in supine position,IV antibiotics were given with induction time- out was done verifying the patient's name, date of , and procedure, all were in agreement. IV propofol was infused by the anesthesia provider, patient was placed in lithotomy position where all pressure points were padded and patient was secured to the table. Swift catheter was inserted by the circulating nurse revealing clear urine. prep and drape of the perineum was done under the usual sterile technique Perianal examination showed right sided perineal sinuses, digital rectal examination show unremarkable findings. There was no scrotal compartment involvement. A lubricated self-retaining proctoscope was inserted, there was no evidence of fistulae or masses per anal examination Started by introducing a tonsil clamp through the anterior sinus of the right side of the perineum and fistula was identified and the tonsil clamp was able to be delivered through the posterior sinus. The posterior segment of the urethra was safeguarded by having a Swift catheter already placed, and the urine maintained to be cleared through the whole entire procedure. Sharp curettage was done to the fistula tract, followed by passing a vessel loop like seton and was tied down by 2-0 silk suture ABDs were applied followed by surgical pants Patient was repositioned to supine position, counts of instruments,needles and sponges were completed at the end of the procedure Patient was taken to the recovery area in stable condition I was present for the whole entire procedure
[2021-07-16 13:09] VITALS: BP 112/79; PULSE 72; RESP 14; TEMP 36.1; O2SAT 96
[2021-07-16 13:10] VITALS: BP 112/79; PULSE 73; RESP 15; O2SAT 97
[2021-07-16 13:16] VITALS: BP 105/77; PULSE 59; RESP 16; O2SAT 95
[2021-07-16 13:20] VITALS: BP 105/77; PULSE 75; RESP 24; TEMP 36.2; O2SAT 95
[2021-07-16 13:25] VITALS: BP 121/83; PULSE 88; RESP 18; TEMP 36.2; O2SAT 92
[2021-07-16 13:55] VITALS: BP 123/85; PULSE 92; RESP 18; O2SAT 95
--- NOTE | 2021-07-16 15:41 | ANE.PACU2 ---
Inpatient post-anesthesia follow up: Airway intact: Yes Vital signs: Temperature 97.2 F Pulse Rate 92 Respiratory Rate 18 Blood Pressure 123/85 Pulse Oximetry 95 Oxygen Delivery Me thod Room Air Oxygen Flow Rate Fraction of Inspir ed Oxygen Hydration adequate: Yes Nausea and vomiting: No Pain level: 1 Mental status: Baseline
== END 2021-07-16 13:25 | disposition home or self-care (01) ==
PROVIDERS: PCP Family Medicine; Visit Provider Surgery
PROC: (CPT 46940; principal; 2021-07-16 11:40)
PROC: (CPT 46940; 2021-07-16 11:40)
DX: K60.3 Anal fistula (principal); G89.29 Other chronic pain; Z79.891 Long term (current) use of opiate analgesic; F41.9 Anxiety disorder, unspecified; F32.9 Major depressive disorder, single episode, unspecified; G82.20 Paraplegia, unspecified; Z86.718 Personal history of other venous thrombosis and embolism; M81.0 Age-related osteoporosis without current pathological fracture; Z86.711 Personal history of pulmonary embolism; Z82.49 Family history of ischemic heart disease and other diseases of the circulatory system
CPT/HCPCS: 46940; 96365; J2543; J2704; J3010; J3490; J7030

== ENCOUNTER 2021-07-20 15:19 | Outpatient (CLI) | payer MEDICAID, SELFPAY | END 2021-07-20 15:20 | disposition home or self-care (01) | LOC: WOUND 15:20 | PROVIDERS: PCP Family Medicine; Visit Provider Surgery | DX: L98.492 Non-pressure chronic ulcer of skin of other sites with fat layer exposed (principal); F17.210 Nicotine dependence, cigarettes, uncomplicated | CPT/HCPCS: 11042 ==

== ENCOUNTER 2021-07-27 14:56 | Outpatient (CLI) | payer MEDICAID, SELFPAY | END 2021-07-27 14:57 | disposition home or self-care (01) | LOC: WOUND 14:57 | PROVIDERS: PCP Family Medicine; Visit Provider Surgery | DX: T81.89XA Other complications of procedures, not elsewhere classified, initial encounter (principal); Y83.8 Other surgical procedures as the cause of abnormal reaction of the patient, or of later complication, without mention of misadventure at the time of the procedure; F17.210 Nicotine dependence, cigarettes, uncomplicated | CPT/HCPCS: 11042 ==

== ENCOUNTER 2021-08-03 15:02 | Outpatient (CLI) | payer MEDICAID, SELFPAY | END 2021-08-03 15:03 | disposition home or self-care (01) | LOC: WOUND 15:02 | PROVIDERS: PCP Family Medicine; Visit Provider Surgery | DX: T81.89XA Other complications of procedures, not elsewhere classified, initial encounter (principal); Y83.8 Other surgical procedures as the cause of abnormal reaction of the patient, or of later complication, without mention of misadventure at the time of the procedure; F17.210 Nicotine dependence, cigarettes, uncomplicated | CPT/HCPCS: 11042 ==

== ENCOUNTER 2021-08-10 14:31 | Outpatient (CLI) | payer MEDICAID, SELFPAY | END 2021-08-10 14:32 | disposition home or self-care (01) | LOC: WOUND 14:32 | PROVIDERS: PCP Family Medicine; Visit Provider Surgery | DX: T81.89XA Other complications of procedures, not elsewhere classified, initial encounter (principal); Y83.8 Other surgical procedures as the cause of abnormal reaction of the patient, or of later complication, without mention of misadventure at the time of the procedure; F17.210 Nicotine dependence, cigarettes, uncomplicated | CPT/HCPCS: 11042 ==

== ENCOUNTER 2021-08-17 13:00 | Outpatient (CLI) | payer MEDICAID, SELFPAY | END 2021-08-17 13:01 | disposition home or self-care (01) | LOC: WOUND 13:01 | PROVIDERS: PCP Family Medicine; Visit Provider Surgery | DX: T81.89XA Other complications of procedures, not elsewhere classified, initial encounter (principal); Y83.8 Other surgical procedures as the cause of abnormal reaction of the patient, or of later complication, without mention of misadventure at the time of the procedure; F17.210 Nicotine dependence, cigarettes, uncomplicated | CPT/HCPCS: 11042 ==

== ENCOUNTER 2021-08-31 10:39 | Outpatient (CLI) | payer MEDICAID, SELFPAY | END 2021-08-31 10:40 | disposition home or self-care (01) | LOC: WOUND 10:40 | PROVIDERS: PCP Family Medicine; Visit Provider Surgery | DX: T81.89XA Other complications of procedures, not elsewhere classified, initial encounter (principal); Y83.8 Other surgical procedures as the cause of abnormal reaction of the patient, or of later complication, without mention of misadventure at the time of the procedure; F17.210 Nicotine dependence, cigarettes, uncomplicated | CPT/HCPCS: 11042 ==

== ENCOUNTER 2021-09-07 10:37 | Outpatient (CLI) | payer MEDICAID, SELFPAY | END 2021-09-07 10:38 | disposition home or self-care (01) | LOC: WOUND 10:37 | PROVIDERS: PCP Family Medicine; Visit Provider Nurse Practitioner Family | DX: T81.89XA Other complications of procedures, not elsewhere classified, initial encounter (principal); Y83.8 Other surgical procedures as the cause of abnormal reaction of the patient, or of later complication, without mention of misadventure at the time of the procedure; F17.210 Nicotine dependence, cigarettes, uncomplicated | CPT/HCPCS: 11042 ==

== ENCOUNTER 2021-09-19 12:28 | Outpatient (CLI) | payer MEDICAID, SELFPAY ==
--- NOTE | 2021-09-19 12:45 | US_ITS ---
WS: [id number] ULTRASOUND SOFT TISSUES perineum. HISTORY: ABSCESS OF EPIDIDYMIS OR TESTIS COMPARISON: None available. TECHNIQUE: 2-D and color Doppler imaging is submitted. There is a complex thick-walled collection with mild peripheral hyperemia centered in the perineum in the area of previously described abscess. This collection is elongated and extends through a tract t o the superficial soft tissue. Collection extends along tract of greater than 3 cm. The remaining kodak meters are 3.0 x 2.2 x 1.3 cm. The wall and complex material centrally but there is increased vascula rity. US/US soft tissue/extremity [id number] IMPRESSION: Small residual hyperemic phlegmonous collection in the perineum. No central liq uefaction but there is increased vascularity suggesting this is an infectious c ollection.
== END 2021-09-19 12:29 | disposition home or self-care (01) ==
LOC: RAD 12:31
PROVIDERS: PCP Family Medicine; Visit Provider Surgery
DX: N45.4 Abscess of epididymis or testis (principal)
CPT/HCPCS: 76882

== ENCOUNTER 2021-09-21 10:45 | Outpatient (CLI) | payer MEDICAID, SELFPAY | END 2021-09-21 10:46 | disposition home or self-care (01) | LOC: WOUND 10:46 | PROVIDERS: PCP Family Medicine; Visit Provider Surgery | DX: T81.89XA Other complications of procedures, not elsewhere classified, initial encounter (principal); Y83.8 Other surgical procedures as the cause of abnormal reaction of the patient, or of later complication, without mention of misadventure at the time of the procedure; F17.210 Nicotine dependence, cigarettes, uncomplicated | CPT/HCPCS: 11042 ==

== ENCOUNTER 2021-09-28 13:16 | Outpatient (CLI) | payer MEDICAID, SELFPAY | END 2021-09-28 13:17 | disposition home or self-care (01) | LOC: WOUND 13:17 | PROVIDERS: PCP Family Medicine; Visit Provider Surgery | DX: T81.89XA Other complications of procedures, not elsewhere classified, initial encounter (principal); Y83.8 Other surgical procedures as the cause of abnormal reaction of the patient, or of later complication, without mention of misadventure at the time of the procedure; F17.210 Nicotine dependence, cigarettes, uncomplicated | CPT/HCPCS: 11042 ==

== ENCOUNTER 2021-10-05 10:17 | Outpatient (CLI) | payer MEDICAID, SELFPAY | END 2021-10-05 10:18 | disposition home or self-care (01) | LOC: WOUND 10:18 | PROVIDERS: PCP Family Medicine; Visit Provider Nurse Practitioner Family | DX: T81.89XA Other complications of procedures, not elsewhere classified, initial encounter (principal); Y83.8 Other surgical procedures as the cause of abnormal reaction of the patient, or of later complication, without mention of misadventure at the time of the procedure; F17.210 Nicotine dependence, cigarettes, uncomplicated | CPT/HCPCS: 11042 ==

== ENCOUNTER 2021-10-17 14:44 | Outpatient (CLI) | payer MEDICAID, SELFPAY | END 2021-10-17 14:45 | disposition home or self-care (01) | LOC: WOUND 14:44 | PROVIDERS: PCP Family Medicine; Visit Provider Nurse Practitioner Family | DX: T81.89XA Other complications of procedures, not elsewhere classified, initial encounter (principal); Y83.8 Other surgical procedures as the cause of abnormal reaction of the patient, or of later complication, without mention of misadventure at the time of the procedure; F17.210 Nicotine dependence, cigarettes, uncomplicated | CPT/HCPCS: 11042; A6219 ==

== ENCOUNTER 2021-10-26 13:55 | Outpatient (CLI) | payer MEDICAID, SELFPAY | END 2021-10-26 13:56 | disposition home or self-care (01) | LOC: WOUND 13:56 | PROVIDERS: PCP Family Medicine; Visit Provider Surgery | DX: T81.89XA Other complications of procedures, not elsewhere classified, initial encounter (principal); Y83.8 Other surgical procedures as the cause of abnormal reaction of the patient, or of later complication, without mention of misadventure at the time of the procedure; F17.210 Nicotine dependence, cigarettes, uncomplicated | CPT/HCPCS: 11042 ==

== ENCOUNTER 2021-11-06 13:33 | Outpatient (CLI) | payer MEDICAID, SELFPAY ==
--- NOTE | 2021-11-06 13:30 | XR_ITS ---
WS: [id number] XR KUB [id number] REASON FOR EXAM: NEPHROLITHIASIS FINDINGS: No change compared to 05/01/2021. No calculi identified within the kidneys or along the course of the ureters in the abdomen or pelvis. No calculi overlying the bladder. No other significant abdominal or pelvic abnormality. Pedicle screws and rods lower thoracic spine. Old fracture dislocation of the lumbosacral junction XR/XR KUB [id number] IMPRESSION: No urinary tract calculi identified.
== END 2021-11-06 13:34 | disposition home or self-care (01) ==
LOC: RAD 13:34
PROVIDERS: PCP Family Medicine; Visit Provider Urology
DX: N20.0 Calculus of kidney (principal)
CPT/HCPCS: 74018

== ENCOUNTER 2021-11-15 11:05 | Outpatient (CLI) | payer MEDICAID, SELFPAY | END 2021-11-15 11:06 | disposition home or self-care (01) | LOC: WOUND 11:05 | PROVIDERS: PCP Family Medicine; Visit Provider Nurse Practitioner Family | DX: T81.89XA Other complications of procedures, not elsewhere classified, initial encounter (principal); Y83.8 Other surgical procedures as the cause of abnormal reaction of the patient, or of later complication, without mention of misadventure at the time of the procedure; F17.210 Nicotine dependence, cigarettes, uncomplicated | CPT/HCPCS: 11042; A6212 ==

== ENCOUNTER 2021-11-30 14:44 | Outpatient (CLI) | payer MEDICAID, SELFPAY | END 2021-11-30 14:45 | disposition home or self-care (01) | LOC: WOUND 14:48 | PROVIDERS: PCP Family Medicine; Visit Provider Surgery | DX: T81.89XA Other complications of procedures, not elsewhere classified, initial encounter (principal); Y83.8 Other surgical procedures as the cause of abnormal reaction of the patient, or of later complication, without mention of misadventure at the time of the procedure; F17.210 Nicotine dependence, cigarettes, uncomplicated | CPT/HCPCS: 11042 ==

== ENCOUNTER 2021-12-07 13:27 | Outpatient (CLI) | payer MEDICAID, SELFPAY | END 2021-12-07 13:28 | disposition home or self-care (01) | LOC: WOUND 13:28 | PROVIDERS: PCP Family Medicine; Visit Provider Surgery | DX: T81.89XA Other complications of procedures, not elsewhere classified, initial encounter (principal); Y83.8 Other surgical procedures as the cause of abnormal reaction of the patient, or of later complication, without mention of misadventure at the time of the procedure; F17.210 Nicotine dependence, cigarettes, uncomplicated | CPT/HCPCS: 11042 ==

== ENCOUNTER 2021-12-21 10:24 | Outpatient (CLI) | payer MEDICAID, SELFPAY | END 2021-12-21 10:25 | disposition home or self-care (01) | LOC: WOUND 10:24 | PROVIDERS: PCP Family Medicine; Visit Provider Surgery | DX: T81.89XA Other complications of procedures, not elsewhere classified, initial encounter (principal); Y83.8 Other surgical procedures as the cause of abnormal reaction of the patient, or of later complication, without mention of misadventure at the time of the procedure; F17.210 Nicotine dependence, cigarettes, uncomplicated | CPT/HCPCS: 11043 ==

== ENCOUNTER 2022-01-11 14:52 | Outpatient (CLI) | payer MEDICAID, SELFPAY | END 2022-01-11 14:53 | disposition home or self-care (01) | LOC: WOUND 14:52 | PROVIDERS: PCP Family Medicine; Visit Provider Surgery | DX: N45.4 Abscess of epididymis or testis (principal); L98.412 Non-pressure chronic ulcer of buttock with fat layer exposed; F17.210 Nicotine dependence, cigarettes, uncomplicated | CPT/HCPCS: 11042 ==

== ENCOUNTER → 2022-01-21 11:35 | Outpatient (BNVA) | payer MEDICAID, SELFPAY | PROVIDERS: PCP Family Medicine; Visit Provider Surgery | DX: Z20.822 Contact with and (suspected) exposure to COVID-19 (principal); Z11.52 Encounter for screening for COVID-19 | CPT/HCPCS: 87635 ==

== ENCOUNTER 2022-01-22 07:55 | Day surgery (SDC) | payer MEDICAID, SELFPAY ==
[2022-01-21 10:34] VITALS: BMI 24.8
[2022-01-22] VITALS (7 sets, daily range): BP systolic 117–131; BP diastolic 79–88; PULSE 65–72; RESP 16–18; TEMP 36.2–37.3; O2SAT 67–98
--- NOTE | 2022-01-22 08:14 | ANES.PREANE2 ---
Pre-Anesthetic Assessment Height/Weight: Height 1.8 m Weight 80.739 kg Preop Diagnosis: Perineal fistula Operation Date: 01/22/22 09:15 Proposed Procedures p Wound Exploration of Perieneal /54917/N45.4(Not Applicable) - Roby Dominique MD Familial anesthetic complications: None Was Beta Bertha taken within 24 hours: N/A Was Clonidine taken within 24 hours: N/A Social Tobacco and No alcohol Exam alert, oriented x 3, clear to auscultation bilaterally and regular rate & rhythm Airway Submandibular: within normal limits Cervical ROM: within normal limits Mallampati: Class II Dentition: false Pulmonary Chronic Obstructive Pulmonary [place] [facility] [place] Chronic pain/opioid Neuropsych Neuropathy Paraplegia Anesthetic Plan ASA status: 3 Anesthesia: Choice Risk of > 500 ml blood loss (7ml/kg in children): No Medications/Allergies Home Medications Medication Instructions Recorded Confirmed Last Taken Type ascorbic acid (vitamin C) 1,000 mg 1,000 mg PO BID@05/25/20 01/21/22 1 Day Ago History tablet (Vitamin C) ~07/15/21 baclofen 10 mg tablet 5 mg PO QID PRN 05/25/20 01/21/22 07/16/21 08:00 History duloxetine 30 mg capsule,delayed 30 mg PO BID@05/25/20 01/21/22 1 Day Ago History release ~07/15/21 ergocalciferol (vitamin D2) 1,250 1,250 mcg PO Q7D 05/25/20 01/21/22 07/12/21 History mcg (50,000 unit) capsule gabapentin 300 mg capsule 600 mg PO QID 05/25/20 01/21/22 07/16/21 08:00 History naloxone 4 mg/actuation nasal 4 mg INTRANASAL Q2M PRN 05/25/20 01/21/22 Unknown History spray (Narcan) oxycodone 10 mg tablet 10 mg PO Q4H PRN 05/25/20 01/21/22 07/16/21 08:00 History polyethylene glycol 3350 17 gram 17 g PO DAILY@1900 05/25/20 01/21/22 2 Days Ago History oral powder packet (Miralax) ~07/14/21 tamsulosin 0.4 mg capsule 0.4 mg PO DAILY@07 05/25/20 01/21/22 1 Day Ago History ~07/15/21 buspirone 10 mg tablet 10 mg PO Q6H PRN 02/09/21 01/21/22 1 Day Ago History ~07/15/21 docusate sodium 100 mg capsule 100 mg PO BEDTIME@2200 02/09/21 01/21/22 2 Weeks Ago History (Colace) ~07/02/21 famotidine 20 mg tablet (Pepcid) 10 mg PO BID@02/09/21 01/21/22 07/15/21 History lactobacillus combination no.4 3 3,000 mmu cells PO BID@02/09/21 01/21/22 1 Day Ago History billion cell capsule (Probiotic) ~07/15/21 simethicone 80 mg chewable tablet 80 mg PO DAILY PRN 02/09/21 01/21/22 1 Day Ago History ~07/15/21 sumatriptan succinate 50 mg tablet 50 mg PO Q2H PRN 02/09/21 01/21/22 1 Day Ago History (Imitrex) ~07/15/21 doxycycline hyclate 100 mg capsule 100 mg PO BID@ 90 Days #180 04/03/21 01/21/22 1 Day Ago Rx cap ~07/15/21 methenamine hippurate 1 gram tablet 1 g PO BID #60 tab 06/18/21 01/21/22 1 Day Ago Rx ~07/15/21 potassium citrate 10 mEq (1,080 20 meq PO BID #120 tab 01/02/22 01/21/22 Unknown Rx mg) tablet,extended release Allergies Allergy/AdvReac Type Severity Reaction Status Date / Time hydrocodone Allergy ADR-Itching Verified 01/21/22 10:14 [facility] Anesthesia Medical History Allergic rhinitis Discitis of lumbar region DVT (deep venous thrombosis) Fusion of spine, thoracolumbar region ELIZABETH (generalized anxiety disorder) Nephrolithiasis Neurogenic bladder Osteoporosis Post-traumatic paraplegia Pulmonary embolism Rectal abscess s/p I&D 10/2019 Recurrent UTI Thrombocytosis after splenectomy Traumatic brain injury Vertebral osteomyelitis Surgical History History of appendectomy History of cholecystectomy Post-splenectomy 06/2016 S/P lumbar spinal arthrodesis 08/2018 Family History Father CAD (coronary artery disease) Mother , at age 55 Brain aneurysm Social History Alcohol intake: never Marital status: Single Current occupational status: disabled History of recent travel: No Data Anesthesia Cardiac Studies: No Data to Display
[2022-01-22] MEDS: HYDROmorphone 1 mg/mL INJ 1 mL 0.5 MG IVP (08:43)
[2022-01-22] MEDS: sodium chloride 0.9% 1,000 ML 30 ML IV (08:45)
--- NOTE | 2022-01-22 08:50 | W.PM.OPSUD ---
Surgery/Procedure H&P Update DATE OF PROCEDURE: January 22, 2022 DATE H&P PERFORMED: 07/11/21 CHANGES TO PREVIOUS DOCUMENTATION: no changes PREOP DIAGNOSIS: Perineal fistula PRIMARY INDICATION FOR PROCEDURE: The same PLANNED PROCEDURE: Operation Date: 01/22/22 09:15 Proposed Procedures p Wound Exploration of Perieneal /18822/N45.4(Not Applicable) - Roby Dominique MD
--- NOTE | 2022-01-22 09:50 | PM.OP ---
Operative Report Date of procedure: January 22, 2022 Pre-op diagnosis: Preop Diagnosis Perineal fistula Procedure done: 1-Exploration of perineal wound 2-Excision of perineal fistula 3-Sharp Debridement of perineal wound Implants: Pieces of Surgicel and Xeroform Specimens removed/disposition: Perineal wound with fistula, sutures marked anterior Surgeon: Roby Dominique MD Radio Program Checker: Suzy Pate Circulating nurse Rosemary Stevenson Estimated blood loss: 5 IV fluids: 350 Brief History: Controlled Perineal fistula Procedure: Procedure: Patient was identified in the holding area, was taken to the OR placed first in supine position,IV antibiotics were given with induction time-out was done verifying the patient's name, date of , and procedure, all were in agreement. was infused by the anesthesia provider, patient was placed in lithotomy position where all pressure points were padded and patient was secured to the table.? Swift catheter was inserted by the circulating nurse revealing clear urine. prep and drape of the perineum was done under the usual sterile technique ? Perineal fistula is well controlled, presence of Prolene suture as a seton in place and no evidence of induration or infection or crepitus.there no scrotal compartment involvement. I was able to pass from anterior to posterior and a hemostat through the fistula tract and the deroofing of the fistula was achieved and the Prolene suture placed before in the form of seton was removed. the posterior segment of the urethra was safeguarded by having a Swift catheter already placed, and the urine maintained to be clear through the whole entire procedure.? Sharp debridement and curettage was done to the fistula tract including but not limited to the unhealthy granulation tissue followed by placement of pursestring suture all around the wound left behind to minimize it its size using 3-0 PDS suture. The debridement went all the way to the muscle layer. Post debridement measurements 3.8 x 5.8 x 1 cm. Irrigation and hemostasis was achieved followed by Surgicel and Xeroform, 4 x 4's,then ABDs were applied followed by surgical pants. Patient was repositioned to supine position, counts of instruments,needles and sponges were completed at the end of the procedure. The Swift catheter was taken out without difficulty at the end of the procedure. Patient was taken to the recovery area in stable condition I was present for the whole entire procedure
--- NOTE | 2022-01-22 12:53 | ANE.PACU2 ---
Inpatient post-anesthesia follow up: Airway intact: Yes Vital signs: Temperature 97.6 F Pulse Rate 67 Respiratory Rate 18 Blood Pressure 131/88 Pulse Oximetry 94 Oxygen Delivery Me thod Room Air Oxygen Flow Rate Fraction of Inspir ed Oxygen Hydration adequate: Yes Nausea and vomiting: No Pain level: 1 Mental status: Baseline
== END 2022-01-22 11:01 | disposition home or self-care (01) ==
PROVIDERS: PCP Family Medicine; Visit Provider Surgery
PROC: (CPT 11043; principal; 2022-01-22 09:15)
DX: K60.3 Anal fistula (principal); J44.9 Chronic obstructive pulmonary disease, unspecified; G89.29 Other chronic pain; Z79.891 Long term (current) use of opiate analgesic; G82.20 Paraplegia, unspecified; Z86.718 Personal history of other venous thrombosis and embolism; Z98.1 Arthrodesis status; M81.0 Age-related osteoporosis without current pathological fracture; Z86.711 Personal history of pulmonary embolism
CPT/HCPCS: 11043; 11046; 36410; 36415; 51702; 88304; J0690; J1170; J2704; J7030

== ENCOUNTER 2022-01-25 10:40 | Outpatient (CLI) | payer MEDICAID, SELFPAY | END 2022-01-25 10:41 | disposition home or self-care (01) | LOC: WOUND 10:41 | PROVIDERS: PCP Family Medicine; Visit Provider Surgery | DX: I96 Gangrene, not elsewhere classified (principal); L98.492 Non-pressure chronic ulcer of skin of other sites with fat layer exposed | CPT/HCPCS: 11043 ==

== ENCOUNTER 2022-02-08 12:10 | Outpatient (CLI) | payer MEDICAID, SELFPAY | END 2022-02-08 12:11 | disposition home or self-care (01) | LOC: WOUND 12:10 | PROVIDERS: PCP Family Medicine; Visit Provider Surgery | DX: T81.89XA Other complications of procedures, not elsewhere classified, initial encounter (principal); Y83.8 Other surgical procedures as the cause of abnormal reaction of the patient, or of later complication, without mention of misadventure at the time of the procedure; I96 Gangrene, not elsewhere classified; L98.412 Non-pressure chronic ulcer of buttock with fat layer exposed | CPT/HCPCS: 11042 ==

== ENCOUNTER → 2022-02-15 11:14 | Outpatient (BNVA) | payer MEDICAID, SELFPAY | PROVIDERS: PCP Family Medicine; Visit Provider Nurse Practitioner Family | DX: T81.89XA Other complications of procedures, not elsewhere classified, initial encounter (principal); Y83.8 Other surgical procedures as the cause of abnormal reaction of the patient, or of later complication, without mention of misadventure at the time of the procedure; I96 Gangrene, not elsewhere classified | CPT/HCPCS: 11042 ==

== ENCOUNTER → 2022-02-22 10:27 | Outpatient (BNVA) | payer MEDICAID, SELFPAY | PROVIDERS: PCP Family Medicine; Visit Provider Surgery | DX: I96 Gangrene, not elsewhere classified (principal); F17.210 Nicotine dependence, cigarettes, uncomplicated; L98.492 Non-pressure chronic ulcer of skin of other sites with fat layer exposed | CPT/HCPCS: 11042; 99212 ==

== ENCOUNTER → 2022-03-08 10:59 | Outpatient (BNVA) | payer MEDICAID, SELFPAY | PROVIDERS: PCP Family Medicine; Visit Provider Emergency Medicine | DX: I96 Gangrene, not elsewhere classified (principal); T81.89XA Other complications of procedures, not elsewhere classified, initial encounter; Y83.8 Other surgical procedures as the cause of abnormal reaction of the patient, or of later complication, without mention of misadventure at the time of the procedure; F17.210 Nicotine dependence, cigarettes, uncomplicated | CPT/HCPCS: 11042 ==

== ENCOUNTER → 2022-03-15 10:55 | Outpatient (BNVA) | payer MEDICAID, SELFPAY | PROVIDERS: PCP Family Medicine; Visit Provider Surgery | DX: T81.89XA Other complications of procedures, not elsewhere classified, initial encounter (principal); Y83.8 Other surgical procedures as the cause of abnormal reaction of the patient, or of later complication, without mention of misadventure at the time of the procedure; I96 Gangrene, not elsewhere classified; F17.210 Nicotine dependence, cigarettes, uncomplicated | CPT/HCPCS: 11042 ==

== ENCOUNTER → 2022-03-29 13:05 | Outpatient (BNVA) | payer MEDICAID, SELFPAY | PROVIDERS: PCP Family Medicine; Visit Provider Surgery | DX: T81.89XA Other complications of procedures, not elsewhere classified, initial encounter (principal); Y83.8 Other surgical procedures as the cause of abnormal reaction of the patient, or of later complication, without mention of misadventure at the time of the procedure; F17.210 Nicotine dependence, cigarettes, uncomplicated | CPT/HCPCS: 99212 ==

== ENCOUNTER 2023-02-20 08:51 | Outpatient (CLI) | payer MEDICAID, SELFPAY ==
--- NOTE | 2023-02-20 09:57 | XR_ITS ---
WS: [id number] Exam: XR KUB [id number] Date/Time of Exam: 02/20/2023 10:06 AM Reason For Exam: STONES Comparison 11/06/2021. No sign of bowel obstruction or free air. No sign of organ enlargement. Chronic osseous destruction o f the L4 and L5 vertebra which has been described previously.. Hardware visualized in the lower thora cic and upper lumbar spine. Signs of prior cholecystectomy. Nonspecific pelvic calcifications. Bony s tructures demonstrate marked osteopenia. XR/XR KUB [id number] IMPRESSION: 1. No acute abdominal process identified.
[2023-02-20 10:21] LABS: Anion Gap 11.1 (5-19); Blood Urea Nitrogen 11 mg/dL (6-20); Calcium 9.3 mg/dL (8.5-10.5); Carbon Dioxide 33 mmol/L (22-29); Chloride 99 mmol/L (98-107); Glomerular Filtration Rate 139.4 mL/min (90-130); Glucose 124 mg/dL (65-115); Osmolality Calculated 289 mOsm/kg (285-295); Potassium 4.1 mmol/L (3.5-5.1); Sodium 139 mmol/L (136-145)
== END 2023-02-20 08:52 | disposition home or self-care (01) ==
LOC: RAD 08:55
PROVIDERS: PCP Family Medicine; Visit Provider Urology
DX: N20.0 Calculus of kidney (principal); N21.0 Calculus in bladder; N39.0 Urinary tract infection, site not specified; N31.9 Neuromuscular dysfunction of bladder, unspecified
CPT/HCPCS: 36415; 74018; 80048; 99214